=== PATIENT | female | born 1995 | race Caucasian/White ===

== ENCOUNTER 2018-06-23 01:46 | Inpatient (IN) ==
[2018-06-23] MEDS ORDERED: AMPICILLIN 2 GM/NS 2 GM/100 ML IVPB IV ONE (02:08)
[2018-06-23] MEDS: LR 1,000 ML IV SCH ×2 (02:35→08:26)
[2018-06-23] MEDS ORDERED: ZOFRAN IV PRN ×2 (02:37→11:22)
[2018-06-23] MEDS: STADOL IV PRN ×2 (02:46→07:06)
[2018-06-23 04:30] LABS: BASO# 0.05 X1000 (0.0-0.2); BASO% 0.2 % (0.0-0.8); EOS# 0.11 X1000 (0.0-0.7); EOS% 0.3 % (0.0-10.0); HEMATOCRIT 35.8 % (37.0-47.0); HEMOGLOBIN 11.9 g/dL (12.0-16.0); IMM GRAN# 0.15 X1000 (0.0-0.04); IMM GRAN% 0.5 % (0.0-0.5); LYMPH# 2.59 X1000 (1.2-3.4); LYMPH% 8.1 % (20.5-51.1); MCH 31.1 PG (27-31); MCHC 33.2 g/dL (33-37); MCV 93.5 FL (81-99); MONO# 2.98 X1000 (0.11-0.59); MONO% 9.4 % (1.7-9.3); MPV 10.6 FL (7.4-10.4); NEUT# 25.92 X1000 (1.4-6.5); NEUT% 81.5 % (42.2-75.2); PLT 321 X1000 (130-400); RBC 3.83 XMIL (4.2-5.4); RDW 11.7 % (11.5-14.5)
[2018-06-23 04:51] LABS: BANDS 5 % (0-1); LYMPHS 12 % (21-51); MONO 1 % (1-9); SEGS 81 % (42-75)
[2018-06-23] MEDS ORDERED: SODIUM CHLORIDE 0.9% INJ PRN (05:30)
[2018-06-23] MEDS ORDERED: PHENERGAN IV PRN (05:30)
[2018-06-23] MEDS: AMPICILLIN 1 GM/NS 1 GM/50 ML IVPB IV SCH ×3 (06:57→14:00)
--- NOTE | 2018-06-23 07:47 | OB/GYN PROGRESS NOTE ---
Progress Note OB - . OB Progress Note: Vital Signs - 24 hr 06/23/18 01:49 06/23/18 07:13 Temperature 97.5 F L 98.1 F Pulse Rate 100 H 111 H Respiratory Rate 20 16 Blood Pressure 133/69 119/63 O2 Sat by Pulse Oximetry 94 L 95 Laboratory Results - last 24 hr 06/23/18 06/23/18 02:35 02:35 WBC 31.80 H RBC 3.83 L Hgb 11.9 L Hct 35.8 L MCV 93.5 MCH 31.1 H MCHC 33.2 RDW Std Deviation 11.7 Plt Count 321 MPV 10.6 H Immature Gran % (Auto) 0.5 Neut % (Auto) 81.5 H Lymph % (Auto) 8.1 L [place] % (Auto) 9.4 H Eos % (Auto) 0.3 Baso % (Auto) 0.2 Immature Gran # (Auto) 0.15 H Neut # (Auto) 25.92 H Lymph # (Auto) 2.59 [place] # (Auto) 2.98 H Eos # (Auto) 0.11 Baso # (Auto) 0.05 Segmented Neutrophils 81 H Band Neutrophils 5 H Lymphocytes 12 L Monocytes 1 Pathologist Review Atypical Lymphocytes 1.0 RPR NON-REACTIVE OB TRIAGE NOTE 23 year old with an IUP at 36+5 weeks with EDC 07/16/2018 presented this morning with complaints of contractions. patient reports that the contractions started about 2 hours before she arrived at the hospital. She reports no leaking of fluid, some nausea and vomiting. no other symptoms reported AFVSS General: AAO x3 in mild distress HEENT: NCAT CV: s1 S2 normal Lungs clear with some exp wheezes- (patient is a smoker) Abd: gravid uterus with positive bowel sounds Ext: no edema CE 3-4 cm dilated FHR 135s with acels TOCO: difficult to trace due to body habitus. occasional contractions seen records reviewed. A/P IUP at 36+5 weeks nausea and vomiting cervical dilation Admit for observation Phenergan and zofran for nausea Stadol for pain continuous monitoring.
[2018-06-23] MEDS ORDERED: FENTANYL-BUPIV-NS 2 MCG-0.1% 200 ML EPIDURAL PRN (10:53)
[2018-06-23] MEDS ORDERED: NAROPIN 0.2% INJ ONE (11:00)
[2018-06-23] MEDS ORDERED: REGLAN PO ONE (11:22)
[2018-06-23] MEDS ORDERED: KEFZOL 1 GM/D5W 1 GM/50 ML IVPB IV PRN (11:22)
[2018-06-23] MEDS ORDERED: PEPCID PO PRN (11:22)
[2018-06-23] MEDS ORDERED: PEPCID PO ONE (11:22)
[2018-06-23] MEDS ORDERED: PEPCID IV PRN (11:22)
[2018-06-23] MEDS ORDERED: TYLENOL PO PRN (11:22)
[2018-06-23] MEDS ORDERED: STADOL IV PRN (11:22)
[2018-06-23] MEDS ORDERED: MINERAL OIL TOP ONE (11:25)
[2018-06-23] MEDS ORDERED: XYLOCAINE-MPF 1% INJ ONE (11:25)
[2018-06-23] MEDS ORDERED: PITOCIN 30 UNITS/NS 30 UNIT/500 ML IV.SOLN IV SCH ×2 (11:30→15:00)
[2018-06-23] MEDS ORDERED: LR 1,000 ML IV SCH (11:30)
[2018-06-23] MEDS ORDERED: SODIUM CHLORIDE 0.9% INJ SCH (11:30)
--- NOTE | 2018-06-23 13:21 | OB/GYN PROGRESS NOTE ---
Progress Note OB - . OB Progress Note: Vital Signs - 24 hr 06/23/18 01:49 06/23/18 07:13 06/23/18 11:00 Temperature 97.5 F L 98.1 F 97.6 F Pulse Rate 100 H 111 H 101 H Respiratory Rate 20 16 18 Blood Pressure 133/69 119/63 122/57 O2 Sat by Pulse Oximetry 94 L 95 96 Laboratory Results - last 24 hr 06/23/18 06/23/18 02:35 02:35 WBC 31.80 H RBC 3.83 L Hgb 11.9 L Hct 35.8 L MCV 93.5 MCH 31.1 H MCHC 33.2 RDW Std Deviation 11.7 Plt Count 321 MPV 10.6 H Immature Gran % (Auto) 0.5 Neut % (Auto) 81.5 H Lymph % (Auto) 8.1 L [place] % (Auto) 9.4 H Eos % (Auto) 0.3 Baso % (Auto) 0.2 Immature Gran # (Auto) 0.15 H Neut # (Auto) 25.92 H Lymph # (Auto) 2.59 [place] # (Auto) 2.98 H Eos # (Auto) 0.11 Baso # (Auto) 0.05 Segmented Neutrophils 81 H Band Neutrophils 5 H Lymphocytes 12 L Monocytes 1 Pathologist Review Atypical Lymphocytes 1.0 RPR NON-REACTIVE OB progress note Patient had a change in cervix to 4 and then to 6 cm. complaining of more contractions, epidural in place. Contractions tolerable. bloody show AFVSS FHR: 130s reactive TOCO: contractions spacing to 4-5 minutes apart CE: 6cm/ completely effaced +1; AROM clear A/P IUP at 36+5 weeks Labor Full admit to labor and delivery GBS unknown - antibiotic prophylaxis in progress expect vaginal delivery
[2018-06-23] MEDS ORDERED: PITOCIN 20 UNITS/NS 20 UNITS/1,000 ML IV.SOLN ONE (14:34)
--- NOTE | 2018-06-23 14:52 | OB/GYN PROGRESS NOTE ---
Progress Note OB - . OB Progress Note: Vital Signs - 24 hr 06/23/18 01:49 06/23/18 07:13 06/23/18 11:00 Temperature 97.5 F L 98.1 F 97.6 F Pulse Rate 100 H 111 H 101 H Respiratory Rate 20 16 18 Blood Pressure 133/69 119/63 122/57 O2 Sat by Pulse Oximetry 94 L 95 96 Laboratory Results - last 24 hr 06/23/18 06/23/18 02:35 02:35 WBC 31.80 H RBC 3.83 L Hgb 11.9 L Hct 35.8 L MCV 93.5 MCH 31.1 H MCHC 33.2 RDW Std Deviation 11.7 Plt Count 321 MPV 10.6 H Immature Gran % (Auto) 0.5 Neut % (Auto) 81.5 H Lymph % (Auto) 8.1 L [place] % (Auto) 9.4 H Eos % (Auto) 0.3 Baso % (Auto) 0.2 Immature Gran # (Auto) 0.15 H Neut # (Auto) 25.92 H Lymph # (Auto) 2.59 [place] # (Auto) 2.98 H Eos # (Auto) 0.11 Baso # (Auto) 0.05 Segmented Neutrophils 81 H Band Neutrophils 5 H Lymphocytes 12 L Monocytes 1 Pathologist Review Atypical Lymphocytes 1.0 RPR NON-REACTIVE Delivery Note of LVMI in vertex presentation with weight of 6lbs 11 ounces and apgars of 8 and 9 at 1 and 5 minutes respectively. periurethral lac repaired with 2.0 chromic. midline primary laceration repaired with 2.0 chromic. left sidewall laceration repaired with 2.0 vicryl. Estimated blood loss 400cc. uterus took a while to become firm. Mother tolerated the procedure well. Infant to nursery.
[2018-06-23] MEDS ORDERED: BENADRYL PO PRN (14:57)
[2018-06-23] MEDS ORDERED: PERI MEDS (DERMOPLAST/NUPERCAINAL/TUCKS) MISC PRN (14:57)
[2018-06-23] MEDS ORDERED: CYTOTEC PO PRN (14:57)
[2018-06-23] MEDS ORDERED: M-M-R II VACCINE SUBQ ONE (14:57)
[2018-06-23] MEDS ORDERED: AMBIEN PO PRN (14:57)
[2018-06-23] MEDS ORDERED: BOOSTRIX VACCINE IM ONE (14:57)
[2018-06-23] MEDS ORDERED: MINERAL OIL PO PRN (14:57)
[2018-06-23] MEDS ORDERED: XYLOCAINE-MPF 1% INJ PRN (14:57)
[2018-06-23] MEDS ORDERED: ATARAX PO PRN (14:57)
[2018-06-23] MEDS ORDERED: BENADRYL IV PRN (14:57)
[2018-06-23] MEDS ORDERED: PITOCIN IM PRN (14:57)
[2018-06-23] MEDS ORDERED: HYDROXYZINE IM PRN (14:57)
[2018-06-23 15:00] LABS: URINE SOURCE VOIDED
[2018-06-23] MEDS ORDERED: PITOCIN 20 UNITS/NS 20 UNITS/1,000 ML IV.SOLN IV SCH (15:00)
[2018-06-23 15:14] LABS: BILIRUBIN URINE NEGATIVE (NEGATIVE); BLOOD URINE 1+ (NEGATIVE); CLARITY CLEAR (CLEAR); COLOR YELLOW; GLUCOSE URINE NEGATIVE (NEGATIVE); KETONE URINE 3+(Large) mg/dL (NEGATIVE); LEUKOCYTES URINE TRACE (NEGATIVE); NITRITE URINE NEGATIVE (NEGATIVE); PH URINE 6.5; PROTEIN URINE 1+(30 mg/dL) mg/dL (NEGATIVE); UROBILINOGEN URINE 1 mg/dL
[2018-06-23 15:21] LABS: UR AMPHETAMINES QUAL NONE DETECTED (NONE DETECT); UR BARBITUATES QUAL NONE DETECTED (NONE DETECT); UR BENZODIAZEPIN QUAL NONE DETECTED (NONE DETECT); UR CANNABINOIDS QUAL NONE DETECTED (NONE DETECT); UR COCAINE QUAL NONE DETECTED (NONE DETECT); UR METHADONE QUAL NONE DETECTED (NONE DETECT); UR METHAMPHETAMINE QUAL NONE DETECTED (NONE DETECT); UR OPIATES QUAL NONE DETECTED (NONE DETECT); UR OXYCODONE QUAL NONE DETECTED (NONE DETECT); UR PCP QUAL NONE DETECTED (NONE DETECT); UR PROPOXYPHENE QUAL NONE DETECTED (NONE DETECT); UR TCA QUAL NONE DETECTED (NONE DETECT)
--- NOTE | 2018-06-23 15:44 | OPERATIVE NOTE ---
PROCEDURE DATE: 06/23/2018 DELIVERY NOTE: The patient was delivered via normal spontaneous vaginal delivery of a live viable male weighing 6 pounds and 11 ounces with Apgars of 8 and 9 at 1 and 5 minutes respectively. Vertex presentation, MYKE and no nuchal cord. The patient had a small periurethral laceration that was not hemostatic. A 2.0 chromic was used to repair that laceration. There was a midline laceration that was a primary laceration that was also bleeding, and was repaired with 2.0 chromic. There was a sidewall small tear on the left sidewall that was repaired with 2-0 Vicryl. The uterus had some atony, however, finally became firm and a lot of clots were cleared from the uterus. The uterus became firm. Estimated Blood Loss about 400 mL. The mother tolerated the procedure well. Infant to the nursery. cc: Andrew Mead MD
[2018-06-23] MEDS: PERICOLACE PO SCH (22:34)
[2018-06-23] MEDS: NORCO-5 PO PRN (23:46)
[2018-06-23] MEDS: MOTRIN PO PRN (23:46)
[2018-06-24 06:52] LABS: BASO# 0.08 X1000 (0.0-0.2); BASO% 0.2 % (0.0-0.8); EOS# 0.15 X1000 (0.0-0.7); EOS% 0.5 % (0.0-10.0); HEMATOCRIT 30.7 % (37.0-47.0); HEMOGLOBIN 10.5 g/dL (12.0-16.0); IMM GRAN# 0.19 X1000 (0.0-0.04); IMM GRAN% 0.6 % (0.0-0.5); LYMPH# 4.66 X1000 (1.2-3.4); LYMPH% 14.4 % (20.5-51.1); MCHC 34.2 g/dL (33-37); MCV 93.6 FL (81-99); MONO# 2.82 X1000 (0.11-0.59); MONO% 8.7 % (1.7-9.3); MPV 10.3 FL (7.4-10.4); NEUT# 24.48 X1000 (1.4-6.5); NEUT% 75.6 % (42.2-75.2); PLT 324 X1000 (130-400); RBC 3.28 XMIL (4.2-5.4); RDW 11.9 % (11.5-14.5); WBC 32.38 X1000 (4.8-10.8)
[2018-06-24 08:30] LABS: BANDS 1 % (0-1); LYMPHS 14 % (21-51); MONO 5 % (1-9); SEGS 80 % (42-75)
--- NOTE | 2018-06-24 08:58 | OB/GYN PROGRESS NOTE ---
Progress Note OB - . Patient Problems: Current Active Problems Problem Status Onset care following vaginal delivery Acute Vaginal delivery Acute Tobacco abuse Acute OB Progress Note: Vital Signs - 24 hr 06/23/18 11:00 06/23/18 15:00 06/23/18 15:10 Temperature 97.6 F 97.3 F L Pulse Rate 101 H 105 H 100 H Respiratory Rate 18 18 18 Blood Pressure 122/57 137/84 Blood Pressure [Right Arm] 137/84 145/68 O2 Sat by Pulse Oximetry 96 96 06/23/18 15:20 06/23/18 15:30 06/23/18 15:40 Temperature Pulse Rate 111 H 102 H 100 H Respiratory Rate 18 18 18 Blood Pressure Blood Pressure [Right Arm] 130/70 132/79 131/81 O2 Sat by Pulse Oximetry 98 99 98 06/23/18 15:50 06/23/18 16:00 06/23/18 20:07 Temperature 97.9 F Pulse Rate 103 H 91 H 96 H Respiratory Rate 18 18 20 Blood Pressure 150/86 130/79 Blood Pressure [Right Arm] 156/67 150/86 O2 Sat by Pulse Oximetry 99 100 98 06/23/18 23:41 06/24/18 05:14 Temperature 97.1 F L 96.5 F L Pulse Rate 79 63 Respiratory Rate 20 20 Blood Pressure 122/62 106/63 Blood Pressure [Right Arm] O2 Sat by Pulse Oximetry 98 95 Laboratory Results - last 24 hr 06/23/18 06/23/18 06/24/18 12:30 12:30 05:55 WBC 32.38 H RBC 3.28 L Hgb 10.5 L Hct 30.7 L MCV 93.6 MCH 32.0 H MCHC 34.2 RDW Std Deviation 11.9 Plt Count 324 MPV 10.3 Immature Gran % (Auto) 0.6 H Neut % (Auto) 75.6 H Lymph % (Auto) 14.4 L [place] % (Auto) 8.7 Eos % (Auto) 0.5 Baso % (Auto) 0.2 Immature Gran # (Auto) 0.19 H Neut # (Auto) 24.48 H Lymph # (Auto) 4.66 H [place] # (Auto) 2.82 H Eos # (Auto) 0.15 Baso # (Auto) 0.08 Segmented Neutrophils 80 H Band Neutrophils 1 Lymphocytes 14 L Monocytes 5 Urine Source VOIDED Urine Color YELLOW Urine Clarity CLEAR Urine pH 6.5 Ur Specific [place] 1.010 Urine Protein 1+(30 mg/dL) A Urine Ketones 3+(Large) A Urine Blood 1+ A Urine Nitrite NEGATIVE Urine Bilirubin NEGATIVE Urine Urobilinogen 1 Urine WBC TRACE A Urine Glucose NEGATIVE Urine Opiates Screen NONE DETECTED Ur Oxycodone Screen NONE DETECTED Urine Methadone Screen NONE DETECTED U Propoxyphene Qual NONE DETECTED Ur Barbituates Screen NONE DETECTED Ur Tricyclics Screen NONE DETECTED Ur Phencyclidine Scrn NONE DETECTED Ur Amphetamines Screen NONE DETECTED U Methamphetamines Scrn NONE DETECTED U Benzodiazepines Scrn NONE DETECTED Urine Cocaine Screen NONE DETECTED U Cannabinoids Screen NONE DETECTED Day #1 Note 23yo at 36w5d who is PPD #1 s/p with first degree laceration. Antepartum and course notable for leukocytosis. Denies complaints this AM. Ambulating, tolerating PO intake, voiding without difficulty. Vitals as above GEN: NAD, alert, cooperative
--- NOTE | 2018-06-24 11:15 | OB/GYN PROGRESS NOTE ---
Progress Note OB - . Patient Problems: Current Active Problems Problem Status Onset Tobacco abuse Acute Vaginal delivery Acute care following vaginal delivery Acute OB Progress Note: Vital Signs - 24 hr 06/23/18 11:00 06/23/18 15:00 06/23/18 15:10 Temperature 97.6 F 97.3 F L Pulse Rate 101 H 105 H 100 H Respiratory Rate 18 18 18 Blood Pressure 122/57 137/84 Blood Pressure [Right Arm] 137/84 145/68 O2 Sat by Pulse Oximetry 96 96 06/23/18 15:20 06/23/18 15:30 06/23/18 15:40 Temperature Pulse Rate 111 H 102 H 100 H Respiratory Rate 18 18 18 Blood Pressure Blood Pressure [Right Arm] 130/70 132/79 131/81 O2 Sat by Pulse Oximetry 98 99 98 06/23/18 15:50 06/23/18 16:00 06/23/18 20:07 Temperature 97.9 F Pulse Rate 103 H 91 H 96 H Respiratory Rate 18 18 20 Blood Pressure 150/86 130/79 Blood Pressure [Right Arm] 156/67 150/86 O2 Sat by Pulse Oximetry 99 100 98 06/23/18 23:41 06/24/18 05:14 Temperature 97.1 F L 96.5 F L Pulse Rate 79 63 Respiratory Rate 20 20 Blood Pressure 122/62 106/63 Blood Pressure [Right Arm] O2 Sat by Pulse Oximetry 98 95 Laboratory Results - last 24 hr 06/23/18 06/23/18 06/24/18 12:30 12:30 05:55 WBC 32.38 H RBC 3.28 L Hgb 10.5 L Hct 30.7 L MCV 93.6 MCH 32.0 H MCHC 34.2 RDW Std Deviation 11.9 Plt Count 324 MPV 10.3 Immature Gran % (Auto) 0.6 H Neut % (Auto) 75.6 H Lymph % (Auto) 14.4 L [place] % (Auto) 8.7 Eos % (Auto) 0.5 Baso % (Auto) 0.2 Immature Gran # (Auto) 0.19 H Neut # (Auto) 24.48 H Lymph # (Auto) 4.66 H Christian # (Auto) 2.82 H Eos # (Auto) 0.15 Baso # (Auto) 0.08 Segmented Neutrophils 80 H Band Neutrophils 1 Lymphocytes 14 L Monocytes 5 Urine Source VOIDED Urine Color YELLOW Urine Clarity CLEAR Urine pH 6.5 Ur Specific [place] 1.010 Urine Protein 1+(30 mg/dL) A Urine Ketones 3+(Large) A Urine Blood 1+ A Urine Nitrite NEGATIVE Urine Bilirubin NEGATIVE Urine Urobilinogen 1 Urine WBC TRACE A Urine Glucose NEGATIVE Urine Opiates Screen NONE DETECTED Ur Oxycodone Screen NONE DETECTED Urine Methadone Screen NONE DETECTED U Propoxyphene Qual NONE DETECTED Ur Barbituates Screen NONE DETECTED Ur Tricyclics Screen NONE DETECTED Ur Phencyclidine Scrn NONE DETECTED Ur Amphetamines Screen NONE DETECTED U Methamphetamines Scrn NONE DETECTED U Benzodiazepines Scrn NONE DETECTED Urine Cocaine Screen NONE DETECTED U Cannabinoids Screen NONE DETECTED Day # 0 Progress Note HPI: 23yo who is PPD #0 s/p . Antepartum and course most notable for leukocytosis. Intrapartum course notable for intermittent elevated blood pressures. She denies complaints. Ambulating without difficulty, tolerating PO intake. Denies fever, chills, N/V, dysuria. Used one pad overnight. Bottle feeding. Desires circ for son. Vital signs as above GEN: NAD, alert, cooperative HEENT: Normocephalic and atraumatic Cards: RRR, no MRG or clicks Lungs: CTAB, occasional wheezes Abdomen: Normoactive bowel sounds, nontender to palpation, fundal height at level of umbilicus Extremities: No cyanosis, no edema, negative Elliott's sign Labs as above No new imaging Assessment: 23yo who is PPD #0 s/p , leukocytosis, intermittent elevated blood pressures Plan: 1. Routine care - Encouraged ambulation - Bottle feeding - Pain control with Ibuprofen and [place] - Circ for male on tomorrow per Peds recs 2. Leukocytosis - Patient has had leukocytosis throughout ; however, elevated to 30 on admission and repeat more elevated at 32. Will repeat CBC on tomorrow. No signs of infection. VSS. - Patient had several doses of Ampicillin intrapartum. 3. Intermittent elevated blood pressures - Noted shortly after delivery. Repeat BPs WNL. Will continue to monitor for signs of PreE.
[2018-06-24] MEDS: NORCO-5 PO PRN ×2 (11:34→17:47)
[2018-06-24] MEDS: MOTRIN PO PRN ×2 (11:34→20:11)
[2018-06-24] MEDS: PERICOLACE PO SCH (20:11)
[2018-06-25] MEDS: NORCO-5 PO PRN ×2 (01:21→09:07)
--- NOTE | 2018-06-25 07:18 | OB/GYN PROGRESS NOTE ---
Progress Note OB - . Patient Problems: Current Active Problems Problem Status Onset Intrauterine Acute Tobacco abuse Acute Vaginal delivery Acute care following vaginal delivery Acute OB Progress Note: Vital Signs - 24 hr 06/24/18 08:22 06/24/18 11:30 06/24/18 16:26 Temperature 96.1 F L 97.3 F L 97.2 F L Pulse Rate 77 96 H 90 Respiratory Rate 16 16 16 Blood Pressure 117/72 114/73 123/73 O2 Sat by Pulse Oximetry 98 98 98 06/24/18 20:15 06/25/18 01:15 Temperature 96.9 F L 96.6 F L Pulse Rate 112 H 78 Respiratory Rate 20 18 Blood Pressure 133/78 125/76 O2 Sat by Pulse Oximetry 9 L 100 Laboratory Results - last 24 hr 06/24/18 05:55 Segmented Neutrophils 80 H Band Neutrophils 1 Lymphocytes 14 L Monocytes 5 No complaints, denies PIH/Orthostatic symptoms. Asymptomatic leukocytosis during . A&O NAD CTAB RRR S/ND/Gravid No C/C/E PPD 2 s/p doing well - D/C home - follow up Dr. [place]
[2018-06-25 07:31] LABS: BASO# 0.05 X1000 (0.0-0.2); BASO% 0.3 % (0.0-0.8); EOS# 0.39 X1000 (0.0-0.7); EOS% 2.3 % (0.0-10.0); HEMATOCRIT 30.4 % (37.0-47.0); HEMOGLOBIN 9.8 g/dL (12.0-16.0); IMM GRAN# 0.21 X1000 (0.0-0.04); IMM GRAN% 1.2 % (0.0-0.5); LYMPH# 4.25 X1000 (1.2-3.4); LYMPH% 24.7 % (20.5-51.1); MCH 30.4 PG (27-31); MCHC 32.2 g/dL (33-37); MCV 94.4 FL (81-99); MONO# 1.17 X1000 (0.11-0.59); MONO% 6.8 % (1.7-9.3); MPV 10.5 FL (7.4-10.4); NEUT# 11.11 X1000 (1.4-6.5); NEUT% 64.7 % (42.2-75.2); PLT 326 X1000 (130-400); RBC 3.22 XMIL (4.2-5.4); WBC 17.18 X1000 (4.8-10.8)
[2018-06-25] MEDS: MOTRIN PO PRN (09:07)
[2018-06-25] MEDS: PNEUMOVAX 23 IM ONE ×2 (09:08→10:24)
[2018-06-25 10:22] VITALS: BP 124/81
== END 2018-06-25 11:00 | disposition home or self-care (01) | DRG 807 ==
LOC: P.NBC 01:46 → P.LD 01:48
PROVIDERS: ADMIT Obstetrics & Gynecology; ATTEND Obstetrics & Gynecology
CPT/HCPCS: 59025; 80104; 80301; 80305; 81003; 85025; 86592; 90707; 90715; 90732; A9270; G0431; G0434; G0477; J0290; J0595; J2405; J2550; J2590; J2795; J7120